=== PATIENT | female | born 1990 ===

== ENCOUNTER → 2021-08-15 11:17 | Outpatient (CLI) | payer OTHER, SELFPAY ==
[2021-08-15 13:20] LABS: COVID19 -Nasal RAPID Negative (Negative)
== END ==
PROVIDERS: Referring Provider Nurse Practitioner Family; Visit Provider Nurse Practitioner Family
DX: Z20.822 Contact with and (suspected) exposure to COVID-19 (principal)
CPT/HCPCS: 87635